=== PATIENT | female | born 1955 | race Caucasian/White ===

== ENCOUNTER 2018-03-31 06:18 | Day surgery (SDC) | payer OTHER ==
[~2018-03-31] VITALS: Ht 157.5 cm; Wt 65.6 kg
[~2018-03-31 06:18] MED LIST: ASPI81CH; CYCL10; FENO48; LOSARTAN-HCTZ1 EAC2; Macrodantin100 MG; Pravachol80 MG
[2018-03-31] MEDS ORDERED: HYDR1TAB94 PO (06:41)
== END 2018-03-31 11:13 | disposition home or self-care (01) ==
LOC: ORSCSDS 06:18
PROVIDERS: Orthopaedic Surgery
PROC: 0RNJ4ZZ Release Right Shoulder Joint, Percutaneous Endoscopic Approach (ICD-10-PCS; principal; 2018-03-31 07:30)
PROC: 0RBJ4ZZ Excision of Right Shoulder Joint, Percutaneous Endoscopic Approach (ICD-10-PCS; principal; 2018-03-31 07:30)
PROC: 0LQ14ZZ Repair Right Shoulder Tendon, Percutaneous Endoscopic Approach (ICD-10-PCS; principal; 2018-03-31 07:30)
PROC: 0LS14ZZ Reposition Right Shoulder Tendon, Percutaneous Endoscopic Approach (ICD-10-PCS; principal; 2018-03-31 07:30)
DX: M75.121 Complete rotator cuff tear or rupture of right shoulder, not specified as traumatic (principal); M75.21 Bicipital tendinitis, right shoulder; M75.51 Bursitis of right shoulder; M75.41 Impingement syndrome of right shoulder; I10 Essential (primary) hypertension; E78.00 Pure hypercholesterolemia, unspecified; Z79.82 Long term (current) use of aspirin; Z79.899 Other long term (current) drug therapy
CPT/HCPCS: C1713; J0171; J1100; J1885; J2250; J2405; J2765; J3010; J7120

== ENCOUNTER → 2019-03-08 | Outpatient (CLI) | payer OTHER ==
[~2019-03-08] MED LIST changes: +HYDR1TAB94 PO
[2019-03-10 15:06] LABS: HPV 16 Negative (Negative); HPV 18 Negative (Negative); HPV OTHER HR TYPES Negative (Negative)
== END | disposition home or self-care (01) ==
LOC: LAB 19:07 → LAB SHORT 19:07
PROVIDERS: Obstetrics & Gynecology Gynecology
DX: Z12.4 Encounter for screening for malignant neoplasm of cervix (principal)
CPT/HCPCS: 87624; G0123

== ENCOUNTER → 2020-11-05 | Outpatient (CLI) | payer MEDICARE ==
[2020-11-05 13:45] LABS: BASOPHILS ABSOLUTE AUTO 0.02 K/mm3 (0.00-0.23); BASOPHILS PERCENT AUTO 0 % (0-2); EOSINOPHILS ABSOLUTE AUTO 0.04 K/mm3 (0.00-0.68); EOSINOPHILS PERCENT AUTO 1 % (0-6); Hematocrit 43.8 % (33.0-51.0); Hemoglobin 14.9 g/dL (11.5-16.0); IMMATURE GRAN ABSOLUTE AUTO 0.02 K/mm3 (0.00-0.10); IMMATURE GRAN PERCENT AUTO 0 % (0-1); LYMPHOCYTES ABSOLUTE AUTO 1.71 K/mm3 (0.84-5.20); LYMPHOCYTES PERCENT AUTO 24 % (21-46); MONOCYTES ABSOLUTE AUTO 0.37 K/mm3 (0.16-1.47); MONOCYTES PERCENT AUTO 5 % (4-13); Mean Corpuscular HGB 29.9 pg (26.0-34.0); Mean Corpuscular Volume 88 fL (80-100); Mean Platelet Volume 10.1 fL (9.1-12.4); NEUTROPHILS ABSOLUTE AUTO 4.85 K/mm3 (1.96-9.15); NEUTROPHILS PERCENT AUTO 69 % (41-73); Platelet Count 233 K/mm3 (150-400); RDW Coefficient Variation 12.3 % (11.7-14.2); RDW Standard Deviation 39.4 fL (35.1-46.3); Red Blood Cell Count 4.98 M/mm3 (3.80-5.20); White Blood Cell Count 7.01 K/mm3 (4.00-11.30)
[2020-11-05 15:34] LABS: Alanine Aminotransfer (ALT/SGP 40 U/L (12-78); Albumin, Blood 4.5 g/dL (3.4-5.0); Albumin/Globulin Ratio 1.4 (0.8-1.8); Alk Phos 78 U/L (50-136); Anion Gap 5 mmol/L (6-16); Aspartate Aminotrans (AST/SGOT 23 U/L (12-37); Bilirubin, Total 0.8 mg/dL (0.1-1.0); Blood Urea Nitrogen 18 mg/dL (8-24); Bun/Creatinine Ratio 21.1 (12.0-20.0); CHOL/HDL RATIO 2.9; CO2, Blood 31 mmol/L (21-32); Calcium, Blood 9.6 mg/dL (8.5-10.1); Chloride, Blood 103 mmol/L (98-108); Cholesterol 172 mg/dL (50-200); Creatinine, Blood 0.85 mg/dL (0.40-1.00); Globulin, Blood 3.2 g/dL (2.2-4.0); Glomerular Filtration Rate >60 (60-); Glucose, Blood 121 mg/dL (70-99); HDL Cholesterol 60 mg/dL (>39); LDL/HDL RATIO 1.3; Low Density Lipoprotein Chol 80 mg/dL (0-110); Potassium, Blood 3.5 mmol/L (3.5-5.5); Sodium, Blood 139 mmol/L (136-145); Total Protein, Blood 7.7 g/dL (6.4-8.2); Triglycerides 158 mg/dL (30-160); Very Low Density Lipoprot Chol 31 mg/dL (6-32)
== END | disposition home or self-care (01) ==
LOC: LAB 10:35
PROVIDERS: Internal Medicine
DX: E78.2 Mixed hyperlipidemia (principal)
CPT/HCPCS: 36415; 80053; 80061; 84443; 85025

== ENCOUNTER → 2020-12-16 | Outpatient (CLI) | payer MEDICARE | END | disposition home or self-care (01) | LOC: LAB SHORT 11:29 → PLD 11:29 | DX: D22.71 Melanocytic nevi of right lower limb, including hip (principal) | CPT/HCPCS: 88305 ==

== ENCOUNTER → 2022-05-26 | Outpatient (CLI) | payer MEDICARE ==
[2022-05-28 14:10] LABS: HPV 16 Negative (Negative); HPV 18 Negative (Negative); HPV OTHER HR TYPES Negative (Negative)
== END | disposition home or self-care (01) ==
LOC: LAB 10:52 → LAB SHORT 10:52
PROVIDERS: Obstetrics & Gynecology
DX: Z01.419 Encounter for gynecological examination (general) (routine) without abnormal findings (principal)
CPT/HCPCS: 87624; G0123

== ENCOUNTER 2024-08-12 10:13 | Observation (INO) | payer MEDICARE ==
[~2024-08-12] VITALS: Ht 157.5 cm; Wt 58.5 kg
[~2024-08-12 10:13] MED LIST changes: +ATOR20 PO; +BENADRYL25 MG PO; +CODACE30; +MELO7.5 PO; +NEURONTIN300 MG PO; +OMEPRAZOLE MAGN20 M1; +SUPER B-50 COM1 EACH; +TRAZ50; +[UNRECOGNIZED DRUG - OTHER]
[2024-08-12 10:51] LABS: BASOPHILS ABSOLUTE AUTO 0.02 K/mm3 (0.00-0.23); BASOPHILS PERCENT AUTO 0 % (0-2); EOSINOPHILS ABSOLUTE AUTO 0.05 K/mm3 (0.00-0.68); EOSINOPHILS PERCENT AUTO 1 % (0-6); Hematocrit 42.4 % (33.0-51.0); Hemoglobin 14.4 g/dL (11.5-16.0); IMMATURE GRAN ABSOLUTE AUTO 0.01 K/mm3 (0.00-0.10); IMMATURE GRAN PERCENT AUTO 0 % (0-1); LYMPHOCYTES ABSOLUTE AUTO 1.71 K/mm3 (0.84-5.20); LYMPHOCYTES PERCENT AUTO 27 % (21-46); MONOCYTES ABSOLUTE AUTO 0.39 K/mm3 (0.16-1.47); MONOCYTES PERCENT AUTO 6 % (4-13); Mean Corpuscular HGB 29.7 pg (26.0-34.0); Mean Corpuscular Volume 87 fL (80-100); Mean Platelet Volume 9.3 fL (9.1-12.4); NEUTROPHILS ABSOLUTE AUTO 4.14 K/mm3 (1.96-9.15); NEUTROPHILS PERCENT AUTO 65 % (41-73); Platelet Count 238 K/mm3 (150-400); RDW Coefficient Variation 13.7 % (11.7-14.2); Red Blood Cell Count 4.85 M/mm3 (3.80-5.20); White Blood Cell Count 6.32 K/mm3 (4.00-11.30)
[2024-08-12] MEDS ORDERED: Morphine Sulfate 4 MG/1 ML Injection IV ONE (10:55)
[2024-08-12 11:02] LABS: Albumin, Blood 4.4 g/dL (3.4-5.0); Albumin/Globulin Ratio 1.3 (0.8-1.8); Bilirubin, Total 0.8 mg/dL (0.1-1.0); Bun/Creatinine Ratio 26.8 (12.0-20.0); Calcium, Blood 9.4 mg/dL (8.5-10.1); Creatinine, Blood 0.9 mg/dL (0.40-1.00); Globulin, Blood 3.3 g/dL (2.2-4.0); Potassium, Blood 4.2 mmol/L (3.5-5.5); Total Protein, Blood 7.7 g/dL (6.4-8.2)
[2024-08-12] MEDS ORDERED: Lidocaine 2% Viscous Soln 15 ML UDC PO ONE (11:15)
[2024-08-12] MEDS ORDERED: Mag Hydrox/AL Hydrox/Simeth 30 ML UDC PO ONE (11:15)
[2024-08-12] MEDS ORDERED: Mag Hydrox/AL Hydrox/Simeth 30 ML UDC PO PRN (13:35)
[2024-08-12] MEDS ORDERED: Aspirin 325 MG Tab PO ONE (13:40)
[2024-08-12] MEDS ORDERED: Nitroglycerin 0.4 MG SUBL SL PRN (13:40)
[2024-08-12] MEDS ORDERED: FLU VACC TS2024-25(6MOS UP)/PF 45 MCG/0.5 ML SYRINGE IM SCH (13:40)
[2024-08-12] MEDS ORDERED: HydrALAZINE HCl 20 MG / ML 1ML Vial IV PRN (13:40)
[2024-08-12] MEDS ORDERED: FentaNYL Citrate 50 MCG/ML 2 ML Injection IV PRN (13:40)
[2024-08-12 14:07] LABS: CHOL/HDL RATIO 2.4; Cholesterol 155 mg/dL (50-200); HDL Cholesterol 64 mg/dL (>39); LDL/HDL RATIO 0.9; Low Density Lipoprotein Chol 56 mg/dL (0-110); Triglycerides 173 mg/dL (30-160); Very Low Density Lipoprot Chol 34 mg/dL (6-32)
[2024-08-12 14:29] VITALS: BP 170/96
[2024-08-12] MEDS ORDERED: LOSA50 PO (14:37)
[2024-08-12] MEDS ORDERED: ZINC15 PO (14:42)
[2024-08-12] MEDS ORDERED: RED YEAST RICE55 MG PO (14:45)
[2024-08-12 15:21] VITALS: BP 129/82
[2024-08-12] MEDS ORDERED: TraZODone HCl 50 MG Tab PO PRN (15:35)
--- NOTE | 2024-08-12 17:39 | NUR ---
ADMISSION NOTE/SHIFT SUMMARY MS JENKINS WAS ADMITTED TO MEDICAL UNIT FROM ER AT 1425HRS. SHE ARRIVED IN A WHEELCHAIR AND WAS ABLE TO TRANSFER INDEPENDENTLY WITH STEADY GAIT. HER BLOOD PRESSURE WAS ELEVATED ON ARRIVAL, MUCH IMPROVED AFTER IV HYDRALAZINE. SHE REPORTS CENTRAL CHEST HEAVYNESS 10/06. SHE REPORTS HAVING PAIN CONSTANTLY SINCE 0930 TODAY, THAT IT WAS RADIATING TO BOTH RIGHT AND LEFT SHOULDERS ORIGINALLY AND WAS VERY STRONG. NOW MUCH IMPROVED. SHE HAS CHRONIC ARTHRITIS PAIN TO HER SHOULDERS AND SHE DOES NOT FEEL LIKE SHE HAS ANY RADIATING CHEST PAIN NOW, JUST USUAL SHOULDER DISCOMFORT. ON TELEMETRY IN SR, NO CALLS FROM [employer]. PLAN FOR STRESS TEST TOMORROW, NPO EXCEPT WATER AFTER MIDNIGHT. BED LOW, CALL LIGHT IN REACH.
[2024-08-12 19:39] VITALS: BP 133/75
[2024-08-12] MEDS ORDERED: Atorvastatin 10 MG Tab PO SCH (21:00)
[2024-08-12] MEDS ORDERED: DiphenhydrAMINE HCL 25 MG Cap PO SCH (21:00)
[2024-08-12] MEDS ORDERED: Gabapentin 300 MG Cap PO SCH (21:00)
[2024-08-13 04:40] VITALS: BP 102/61
[2024-08-13 05:02] LABS: BASOPHILS ABSOLUTE AUTO 0.02 K/mm3 (0.00-0.23); BASOPHILS PERCENT AUTO 0 % (0-2); EOSINOPHILS ABSOLUTE AUTO 0.07 K/mm3 (0.00-0.68); EOSINOPHILS PERCENT AUTO 1 % (0-6); Hemoglobin 12.8 g/dL (11.5-16.0); IMMATURE GRAN ABSOLUTE AUTO 0.02 K/mm3 (0.00-0.10); IMMATURE GRAN PERCENT AUTO 0 % (0-1); LYMPHOCYTES ABSOLUTE AUTO 1.99 K/mm3 (0.84-5.20); LYMPHOCYTES PERCENT AUTO 30 % (21-46); MONOCYTES ABSOLUTE AUTO 0.42 K/mm3 (0.16-1.47); MONOCYTES PERCENT AUTO 6 % (4-13); Mean Corpuscular HGB 29.6 pg (26.0-34.0); Mean Corpuscular HGB Conc 33.7 g/dL (31.5-36.5); Mean Corpuscular Volume 88 fL (80-100); Mean Platelet Volume 9.3 fL (9.1-12.4); NEUTROPHILS ABSOLUTE AUTO 4.22 K/mm3 (1.96-9.15); NEUTROPHILS PERCENT AUTO 63 % (41-73); Platelet Count 224 K/mm3 (150-400); RDW Coefficient Variation 13.9 % (11.7-14.2); RDW Standard Deviation 44.8 fL (35.1-46.3); Red Blood Cell Count 4.33 M/mm3 (3.80-5.20); White Blood Cell Count 6.74 K/mm3 (4.00-11.30)
[2024-08-13 05:27] LABS: Bun/Creatinine Ratio 27.8 (12.0-20.0); Calcium, Blood 9.1 mg/dL (8.5-10.1); Creatinine, Blood 0.9 mg/dL (0.40-1.00)
[2024-08-13] MEDS ORDERED: Omeprazole 20 MG CapCR PO SCH (06:00)
--- NOTE | 2024-08-13 06:08 | NUR ---
SHIFT SUMMARY PT ALERT AND ORIENTED TIMES 4. OBTAINED ORDER FOR MOBIC PER PT REQUEST. PT ABLE TO MAKE NEEDS KNOWN. PT ABLE TO AMBULATE TO RESTROOM. NPO TODAY FOR STRESS TEST. BED IN LOW POSITION, CALL LIGHT WITHIN REACH, RAILS TIMES 2.
[2024-08-13 07:29] VITALS: BP 127/68
[2024-08-13] MEDS ORDERED: Vitamin B Complex 1 EA Softgel PO SCH (09:00)
[2024-08-13] MEDS ORDERED: Misc. Tablet PO SCH ×2 (09:00)
[2024-08-13] MEDS ORDERED: Enoxaparin 40 MG/0.4 ML SYR SC SCH (09:00)
[2024-08-13] MEDS ORDERED: Losartan Potassium 50 MG Tab PO SCH (09:00)
[2024-08-13] MEDS ORDERED: Regadenoson 0.4 MG/5 ML SYRINGE ONE (09:08)
[2024-08-13] MEDS ORDERED: Acetaminophen 325 MG TABLET PO PRN (11:25)
[2024-08-13] MEDS ORDERED: PANT40 PO (13:50)
--- NOTE | 2024-08-13 14:12 | NUR ---
DISCHARGE NOTE STRESS TEST AND ECHO DONE AND RESULTS REVIEWED BY DR PRETTY WITH PT. BRIEF C/O HEADACHE THAT WENT AWAY WITHOUT TREATMENT. MS JENKINS WAS DISCHARGED HOME AT 1410HRS WITH VISITOR. SHE VERBALISED UNDERSTANDING OF WRITTEN AND VERBAL INSTRUCTIONS. SHE DENIED ANY NEW QUESTIONS OR CONCERNS PRIOR TO DISCHARGE. PIV AND TELEMETRY REMOVED PRIOR TO DISCHARGE. PT AMBULATED FROM MEDICAL FLOOR, DECLINED WHEELCHAIR.
[2024-08-13] MEDS ORDERED: Meloxicam 7.5 MG Tab PO SCH (21:00)
== END 2024-08-13 14:12 | disposition home or self-care (01) ==
LOC: ER 10:13 → MEDS 10:14
PROVIDERS: Physician Assistant; ADMIT Family Medicine
DX: R07.89 Other chest pain (principal); I16.0 Hypertensive urgency; E78.5 Hyperlipidemia, unspecified; K21.9 Gastro-esophageal reflux disease without esophagitis; Z88.0 Allergy status to penicillin; Z88.2 Allergy status to sulfonamides; Z91.040 Latex allergy status; Z91.048 Other nonmedicinal substance allergy status; Z79.899 Other long term (current) drug therapy
CPT/HCPCS: 36415; 71046; 78452; 80048; 80053; 80061; 83036; 84443; 84484; 85025; 93005; 93010; 93017; 93306; 96372; 96374; 96375; 99285-25; A9270; A9500; G0378; J0360; J1650; J2270; J2785